=== PATIENT | female | born 2000 | race Caucasian/White ===

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

== ENCOUNTER 2018-01-08 17:39 | Emergency (ER) | payer MEDICAID ==
[~2018-01-08] VITALS: Ht 162.6 cm; Wt 69.3 kg
[2018-01-08 18:00] VITALS: BP 116/86
[2018-01-08 18:33] LABS: CLARITY URINE CLEAR (CLEAR); COLOR URINE YELLOW (YELLOW); KETONES URINE 2+ (NEGATIVE); LEUKOCYTE ESTERASE URINE 1+ (NEGATIVE); NITRITE URINE NEGATIVE (NEGATIVE); OCCULT BLOOD URINE 3+ (NEGATIVE); PROTEIN URINE NEGATIVE (NEGATIVE)
== END 2018-01-08 21:00 | disposition left against medical advice (07) ==
LOC: ER 18:27
DX: R10.13 Epigastric pain (principal); R19.7 Diarrhea, unspecified
CPT/HCPCS: 81003; 81025; 99283

== ENCOUNTER 2018-06-26 11:50 | Emergency (ER) | payer MEDICAID ==
[~2018-06-26] VITALS: Ht 162.6 cm; Wt 76.0 kg
[2018-06-26 11:55] VITALS: BP 125/77
[2018-06-26] MEDS ORDERED: ONDANSETRON 4MG ODT PO ONE (12:30)
[2018-06-26] MEDS ORDERED: MORPHINE SULFATE 10 MG/ML CPJ IM ONE (12:30)
== END 2018-06-26 13:59 | disposition home or self-care (01) ==
LOC: ER 11:50
DX: M54.6 Pain in thoracic spine (principal)
CPT/HCPCS: 71101; 73010; 81025; 99284; J2270; Q0162

== ENCOUNTER 2020-07-12 22:49 | Emergency (ER) | payer MEDICAID ==
[~2020-07-12] VITALS: Ht 162.6 cm; Wt 80.0 kg
[2020-07-12 22:54] VITALS: BP 128/95
[2020-07-13] MEDS: IBUPROFEN 600MG TABLET PO STA (00:12)
== END 2020-07-13 01:49 | disposition home or self-care (01) ==
LOC: ER 07-13 00:45
DX: M25.512 Pain in left shoulder (principal); M54.9 Dorsalgia, unspecified; S70.02XA Contusion of left hip, initial encounter; V43.52XA Car driver injured in collision with other type car in traffic accident, initial encounter; Y93.9 Activity, unspecified; Y92.410 Unspecified street and highway as the place of occurrence of the external cause
CPT/HCPCS: 72100; 73030; 73502; 81025; 99284

== ENCOUNTER 2023-04-13 10:38 | Emergency (ER) | payer MEDICAID, OTHER ==
[~2023-04-13] VITALS: Ht 162.6 cm; Wt 85.0 kg
[2023-04-13 10:52] VITALS: O2SAT 98
[2023-04-13] MEDS ORDERED: HYDROCODONE/ACETAMINOPHEN 5/325MG TABLET PO ONE (12:30)
[2023-04-13] MEDS ORDERED: BACITRACIN ZINC OINT UDPKT TOP ONE (12:45)
[2023-04-13 14:31] LABS: BASOPHILS % 0.2 % (0.0-2.0); EOSINOPHILS % 0.1 % (0.0-5.0); HEMATOCRIT. 38.2 % (36.0-48.0); HEMOGLOBIN. 12.6 g/dL (12.0-16.0); LYMPHOCYTES % 7.8 % (20.0-50.0); MEAN CORPUSCULAR VOLUME 78.6 fL (81.0-99.0); MONOCYTES % 3.3 % (2.0-8.0); NEUTROPHILS % 88.6 % (40.0-76.0); PLATELET 301 x1000/uL (130-400); RED BLOOD CELL COUNT 4.86 mill/uL (4.2-5.4); RED CELL DISTRIBUTION WIDTH 14.1 % (11.6-14.6)
[2023-04-13 14:33] LABS: CHLORIDE 111 mEq/L (98-107)
[2023-04-13] MEDS ORDERED: BACITRACIN ZINC OINT UDPKT TOP SCH (14:45)
[2023-04-13] MEDS ORDERED: HYDROCODONE/ACETAMINOPHEN 5/325MG TABLET PO SCH (14:45)
[2023-04-13] MEDS ORDERED: HYDR-4001 MT (15:49)
[2023-04-13] MEDS ORDERED: IBUP-2029 MT (15:49)
[2023-04-13] MEDS ORDERED: CYCL10TA21 MT (15:52)
[2023-04-13 16:16] VITALS: BP 132/77; PULSE 78; RESP 16; TEMP 97.5
[2023-04-13] MEDS ORDERED: IOHEXOL-300 100 ML BOTTLE ONE (18:12)
== END 2023-04-13 16:19 | disposition home or self-care (01) ==
LOC: ER 10:50
DX: S20.219A Contusion of unspecified front wall of thorax, initial encounter (principal); S40.012A Contusion of left shoulder, initial encounter; S39.012A Strain of muscle, fascia and tendon of lower back, initial encounter; S30.1XXA Contusion of abdominal wall, initial encounter; V49.9XXA Car occupant (driver) (passenger) injured in unspecified traffic accident, initial encounter; Y93.89 Activity, other specified; Y92.89 Other specified places as the place of occurrence of the external cause; Y99.8 Other external cause status
CPT/HCPCS: 80053; 81025; 85025; 36415; 71045; 73030; 73130; 74177; 99285; Q9967; Z7610

== ENCOUNTER 2023-04-27 21:46 | Emergency (ER) | payer OTHER ==
[~2023-04-27] VITALS: Ht 162.6 cm; Wt 89.3 kg
[~2023-04-27 21:46] MED LIST: CYCL10TA21 MT; IBUP-2029 MT
[2023-04-27 21:56] VITALS: BP 143/92; PULSE 92; RESP 16; TEMP 98; O2SAT 99
[2023-04-27 22:50] LABS: BASOPHILS % 0.8 % (0.0-2.0); EOSINOPHILS % 1.6 % (0.0-5.0); HEMATOCRIT. 37.5 % (36.0-48.0); HEMOGLOBIN. 12.9 g/dL (12.0-16.0); LYMPHOCYTES % 29.3 % (20.0-50.0); MEAN CORPUSCULAR HEMOGLOBIN 26.9 pg (28.0-32.0); MEAN CORPUSCULAR VOLUME 78.2 fL (81.0-99.0); MEAN PLATELET VOLUME 8.6 fl (7.4-10.4); MONOCYTES % 4.6 % (2.0-8.0); NEUTROPHILS % 63.7 % (40.0-76.0); PLATELET 323 x1000/uL (130-400); RED BLOOD CELL COUNT 4.79 mill/uL (4.2-5.4); RED CELL DISTRIBUTION WIDTH 14.3 % (11.6-14.6)
[2023-04-27 22:59] LABS: CHLORIDE 109 mEq/L (98-107)
[2023-04-27 23:10] LABS: PROTHROMBIN TIME 10.3 sec (9.6-11.0)
[2023-04-27 23:19] LABS: CLARITY URINE CLOUDY (CLEAR); COLOR URINE ORANGE (YELLOW); KETONES URINE TRACE (NEGATIVE); LEUKOCYTE ESTERASE URINE TRACE (NEGATIVE); NITRITE URINE POSITIVE (NEGATIVE); OCCULT BLOOD URINE 3+ (NEGATIVE); PH URINE 5.5 (4.5-8.0); PROTEIN URINE 2+ (NEGATIVE); SPECIFIC GRAVITY URINE 1.033 (1.005-1.030)
== END 2023-04-28 07:39 | disposition left against medical advice (07) ==
LOC: ER 21:46
DX: N93.9 Abnormal uterine and vaginal bleeding, unspecified (principal); I49.9 Cardiac arrhythmia, unspecified
CPT/HCPCS: 36415; 80053; 81003; 81025; 84484; 85025; 93005; 99284